=== PATIENT | female | born 1945 | race Caucasian/White ===

== ENCOUNTER 2017-01-26 10:38 | Emergency (ER) | payer OTHER ==
--- NOTE | 2017-01-26 12:16 | EDPHY ---
H & P Time Seen by Provider: 01/26/17 10:42 HPI/ROS: 71-year-old female presents complaining of tripping over a cord to a curling iron while at her [employer] last , 6 days ago, hitting her forehead on the ceramic floor. She presents today for complaint of ongoing bruising to her face. Review of systems As per HPI General no fever no chills no weakness HEENT no eye pain no eye discharge. No eye redness, no sore throat Respiratory no cough, no shortness of breath Cardiac no chest pain, no peripheral edema GI no abdominal pain, no diarrhea, no constipation, no nausea, no vomiting no flank pain, no hematuria, no dysuria Musculoskeletal no myalgias, no joint pain Heme no easy bruising, no easy bleeding Endo no polyuria, no polydipsia Skin no rashes, no pruritus Neuro no syncope, no dizziness, no headaches Psych is no suicidal ideation, no homicidal ideation Past Medical/Surgical History: Hypothyroidism Hyperlipidemia Osteoporosis Social History: Denies alcohol drug or tobacco use Smoking Status: Never smoked Physical Exam: 71-year-old female alert and oriented in no acute distress nontoxic appearance afebrile Normocephalic Periorbital ecchymosis on left side and infraorbital ecchymosis on right, left frontal forehead hematoma Nares-no bleeding no septal hematoma Oropharynx-normal bite, no tongue injuries Neck supple nontender Lungs clear to auscultation bilaterally Heart regular rate and rhythm without murmur rub or gallop Abdomen nondistended NABS soft Extremities no cyanosis clubbing or edema Neuro alert and oriented x3, no focal findings, gait intact, coordination intact Constitutional: Initial Vital Signs Temperature (C) 36.7 C 01/26/17 10:38 Heart Rate 75 01/26/17 10:38 Respiratory Rate 24 H 01/26/17 10:38 Blood Pressure 157/104 H 01/26/17 10:38 O2 Sat (%) 95 01/26/17 10:38 O2 Delivery Mode Room Air Allergies/Adverse Reactions: Penicillins Allergy (Verified 01/26/17 10:40) Home Medications: Medication Instructions Recorded ARMOUR THYROID 01/26/17 Atorvastatin Calcium 01/26/17 Fosamax 70 MG (*) 01/26/17 HYDROCODONE BIT/ACETAMINOPHEN 01/26/17 Zorvlex 01/26/17 Medical Decision Making - Diagnostics Imaging Results: Imaging Impressions Face CT 01/26/17 11:19 Impression: No evidence for acute intracranial abnormality. No evidence for skull fracture. CT facial bones without contrast. History: Recent fall. Pain. Technique: 1.5 mm helical images were obtained the facial bones without contrast. Multiplanar reformation was performed. Radiation dose reduction technique was utilized. Findings: No evidence for facial bone fracture. This 50 mucous membrane thickening or air-fluid level in the paranasal sinuses. There are artery posterior cells bilaterally narrowing both ethmoid infundibulum is. There is petty bullosa the left middle turbinate. Mild nasal septum deviation to the right. Impression: No evidence for facial bone fracture. Results called and discussed with Irma Gallego MD at 01/26/2017 12:00. Head CT 01/26/17 11:20 Impression: No evidence for acute intracranial abnormality. No evidence for skull fracture. CT facial bones without contrast. History: Recent fall. Pain. Technique: 1.5 mm helical images were obtained the facial bones without contrast. Multiplanar reformation was performed. Radiation dose reduction technique was utilized. Findings: No evidence for facial bone fracture. This 50 mucous membrane thickening or air-fluid level in the paranasal sinuses. There are artery posterior cells bilaterally narrowing both ethmoid infundibulum is. There is petty bullosa the left middle turbinate. Mild nasal septum deviation to the right. Impression: No evidence for facial bone fracture. Results called and discussed with Iram Gallego MD at 01/26/2017 12:00. ED Course/Re-evaluation: Medical decision making and ER course Patient seen and evaluated for fall which occurred 6 days ago. She presented today because she has ongoing ecchymosis to her face, as well as occasional headache. Differential diagnosis considered Facial fractures, intracranial injury, nasal fracture CT scan maxillofacial negative for fracture, positive evidence of left frontal scalp hematoma CT scan brain negative for intracranial bleed Impression Left frontal facial hematoma with residual periorbital ecchymosis on left, infraorbital ecchymosis on right Plan Discharge Follow-up PCP Departure - Departure Disposition: Home, Routine, Self-Care Clinical Impression: Traumatic hematoma of forehead, Traumatic periorbital ecchymosis Condition: Good Instructions: Black Eye (ED), Facial Contusion (ED) Additional Instructions: There are no signs of broken facial bones. Your CT scan of your brain shows no signs of bleeding. Referrals: Katrin Lopez MD [Primary Care Provider] - As per Instructions
[2017-01-26 12:39] VITALS: BP 144/87; PULSE 69; RESP 16; TEMP 98.2; O2SAT 97
== END 2017-01-26 12:37 | disposition home or self-care (01) ==
LOC: CED 10:38
DX: S00.83XA Contusion of other part of head, initial encounter (principal); W01.198A Fall on same level from slipping, tripping and stumbling with subsequent striking against other object, initial encounter
CPT/HCPCS: 70450-PO; 70486-PO

== ENCOUNTER → 2017-04-29 | Outpatient (CLI) | payer OTHER | LOC: CIMAGING 09:58 | PROVIDERS: ATTEND Internal Medicine | DX: Z12.31 Encounter for screening mammogram for malignant neoplasm of breast (principal) | CPT/HCPCS: G0202 ==

== ENCOUNTER → 2018-05-17 | Outpatient (CLI) | payer OTHER | LOC: CIMAGING 09:47 | PROVIDERS: ATTEND Internal Medicine | DX: Z12.31 Encounter for screening mammogram for malignant neoplasm of breast (principal) ==